=== PATIENT | female | born 1980 | race Two or more races ===

== ENCOUNTER 2021-10-12 19:06 | Emergency (ER) | payer SELFPAY | END 2021-10-12 21:22 | disposition left against medical advice (07) | PROVIDERS: Emergency Provider Emergency Medicine | DX: M54.2 Cervicalgia (principal) ==

== ENCOUNTER 2021-11-06 14:54 | Emergency (ER) | payer OTHER, SELFPAY ==
[2021-11-06 15:15] VITALS: BP 138/65; PULSE 82; RESP 16; TEMP 36.1; O2SAT 100; BMI 39.6
[2021-11-06 15:44] LABS: Appearance Urine CLEAR; Color Urine YELLOW; Glucose Urine UA NEG (NEG); Leukocyte Esterase Urine NEG (NEG); Nitrite Urine NEG (NEG); Specific Gravity - Urine 1.025 (1.005-1.025); Urine Blood NEG (NEG); Urine Ketones NEG (NEG); Urine Protein NEG (NEG-TRACE)
[2021-11-06 15:55] LABS: UPreg QC Valid YES; Urine Pregnancy NEGATIVE (NEGATIVE)
== END 2021-11-06 21:08 | disposition left against medical advice (07) ==
PROVIDERS: Emergency Provider Emergency Medicine
DX: N94.89 Other specified conditions associated with female genital organs and menstrual cycle (principal); N93.8 Other specified abnormal uterine and vaginal bleeding
CPT/HCPCS: 81003; 81025; 99283